=== PATIENT | male | born 1965 | race African-American/Black ===

== ENCOUNTER 2017-08-24 11:07 | Observation (INO) | payer OTHER, SELFPAY ==
[2017-08-24] MEDS ORDERED: NA CHLORIDE 0.9% 2,000 ML ONE (12:00)
--- NOTE | 2017-08-24 12:35 | RAD REPORT ---
EXAM DESCRIPTION: Jazmyne Single View08/24/2017 12:29 pm CLINICAL HISTORY: Chest pain COMPARISON: December 2016 FINDINGS: The lungs appear clear of acute infiltrate. The heart is normal size IMPRESSION: No acute abnormalities displayed
[2017-08-24 12:38] LABS: Absolute Lymphocytes (CBC) 2.5 K/uL (0.7-4.9); Absolute Monocytes 0.6 K/uL (0.1-1.3); Absolute Neutrophil 11.3 K/uL (1.8-8.0); Basophils % 0.5 % (0-1.3); Eosinophils % 0.3 % (0-4.4); Hematocrit 44.2 % (39.6-49.0); MCH 29.3 pg (27.0-35.0); MCV 91.3 fL (80-100); MPV 8.5 fL (7.6-11.3); RBC Red Blood Cell Count 4.84 M/uL (4.33-5.43)
[2017-08-24 12:41] LABS: Protime INR 1.05
[2017-08-24 13:04] LABS: ALT/SGPT 39 U/L (12-78); AST/SGOT 20 U/L (15-37); Albumin 4.2 g/dL (3.4-5.0); Alkaline Phosphatase 124 U/L (45-117); BUN Blood Urea Nitrogen 57 mg/dL (7-18); Bicarbonate 27 mmol/L (21-32); Bilirubin Direct < 0.1 mg/dL (0-0.2); Bilirubin Total 0.3 mg/dL (0.2-1.0); Glucose Level 112 mg/dL (74-106); Magnesium 2.9 mg/dL (1.8-2.4); NT PRO-BNP 24 pg/mL (<125); Potassium 4.9 mmol/L (3.5-5.1); Protein, Total 9.1 g/dL (6.4-8.2); Sodium Level 133 mmol/L (136-145)
[2017-08-24] MEDS ORDERED: NA CHLORIDE 0.9% 1,000 ML ONE ×2 (13:28→14:14)
[2017-08-24] MEDS ORDERED: LIDOCAINE VISCOUS 2% SOLN 15 ML UDC ONE (13:36)
[2017-08-24 13:57] LABS: Arterial Blood Carboxyhemoglob 0.6 % (0-1.5); Blood Gas Oxyhemoglobin 92.5 % (94-97); Blood O2 Saturation 94.2 % (92-98.5)
--- NOTE | 2017-08-24 14:02 | ER ---
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 Then I felt a tightness in my chest and lost all my energy. My vision keeps going in an out.". Transition of care: patient was not received from another setting of care. Onset of symptoms was August 24, 2017 at 08:30. Risk Assessment: Do you want to hurt yourself or someone else? Patient reports no desire to harm self or others. Initial Sepsis Screen: Does the patient meet any 2 criteria? Systolic BP < 90 mmHg. No. Patient's initial sepsis screen is negative. Does the patient have a suspected source of infection? No. Patient's initial sepsis screen is negative. Care prior to arrival: None. 11:34 Method Of Arrival: Ambulatory lk1 11:34 Acuity: VICK 3 lk1 Historical: - Allergies: 11:36 No Known Allergies; lk1 - PMHx: 11:36 Hyperlipidemia; Hypertension; Diabetes - NIDDM; lk1 - PSHx: 11:36 None; lk1 - Immunization history:: Adult Immunizations up to date. - Social history:: Smoking status: Patient/guardian denies using tobacco. - Ebola Screening: : Patient negative for fever greater than or equal to 101.5 degrees Fahrenheit, and additional compatible Ebola Virus Disease symptoms Patient denies exposure to infectious person Patient denies travel to an Ebola-affected area in the 21 days before illness onset No symptoms or risks identified at this time. Screenin:00 Abuse screen: Denies threats or abuse. Denies injuries from another. Nutritional jl7 screening: No deficits noted. Tuberculosis screening: No symptoms or risk factors identified. Fall Risk IV access (20 points). Total Mcfadden Fall Scale indicates No Risk (0-24 pts). Assessment: 11:30 General: Appears in no apparent distress. uncomfortable, Behavior is calm, cooperative, jl7 appropriate for age. Pain: Denies pain. Neuro: Level of Consciousness is awake, alert, obeys commands, Oriented to person, place, time, situation. Cardiovascular: Heart tones S1 S2 present Patient's skin is warm and dry. Respiratory: Airway is patent Respiratory effort is even, unlabored, Respiratory pattern is regular, symmetrical, Breath sounds are clear bilaterally. GI: Patient currently denies diarrhea, nausea, vomiting. : Denies burning with urination, inability to void, pain urgency. EENT: No signs and/or symptoms were reported regarding the EENT system. Derm: Skin is dry, Skin is normal, Skin temperature is warm. Musculoskeletal: No signs and/or symptoms reported regarding the musculoskeletal system. 12:30 Reassessment: No changes from previously documented assessment. Patient and/or family jl7 updated on plan of care and expected duration. Pain level reassessed. Patient is alert, oriented x 3, equal unlabored respirations, skin warm/dry/pink. 13:30 Reassessment: Patient and/or family updated on plan of care and expected duration. Pain jl7 level reassessed. Patient is alert, oriented x 3, equal unlabored respirations, skin warm/dry/pink. 14:30 Reassessment: Patient and/or family updated on plan of care and expected duration. Pain jl7 level reassessed. Patient is alert, oriented x 3, equal unlabored respirations, skin warm/dry/pink. Vital Signs: 11:37 BP 84 / 56; Pulse 102; Resp 18; Temp 96.8(TE); Pulse Ox 100% on R/A; Weight 112.49 kg lk1 (R); Height 6 ft. 3 in. (190.50 cm) (R); Pain 7/10; 12:15 BP 99 / 62; Pulse 85; Resp 16; Pulse Ox 100% ; jl7 12:45 BP 85 / 55; Pulse 72; Resp 16; Pulse Ox 100% ; jl7 13:18 BP 98 / 60; Pulse 70; Resp 16; Pulse Ox 100% ; jl7 14:00 BP 92 / 74; Pulse 73; Resp 16 S; Pulse Ox 100% on R/A; jl7 14:49 BP 109 / 71; Pulse 87; Resp 16; Temp 98.5; Pulse Ox 100% ; Pain 0/10; jl7 11:37 Body Mass Index 31.00 (112.49 kg, 190.50 cm) lk1 ED Course: 11:12 Patient arrived in ED. mr 11:12 None, None is Private Physician. mr 11:30 Chavo Boone PA is PHCP. jr8 11:30 Devon Eng MD is Attending Physician. jr8 11:30 Initial lab(s) drawn, by mn, sent to lab. Inserted saline lock: 20 gauge in left jl7 antecubital area, using aseptic technique. Blood collected. 11:34 Maryse Bynum RN is Primary Nurse. jl7 11:36 Triage completed. lk1 11:37 Arm band placed on right wrist. lk1 11:45 Patient has correct armband on for positive identification. Bed in low position. Call jl7 light in reach. Side rails up X 1. color television console monitor on. Pulse ox on. NIBP on. 12:26 X-ray completed. Portable x-ray completed in exam room. Patient tolerated procedure kp1 well. 12:27 XRAY Chest (1 view) In Process Unspecified. EDMS 12:30 Inserted saline lock: 22 gauge in right hand, using aseptic technique. jl7 14:01 Ultrasound completed. Patient tolerated well. aa4 14:01 Adiel Timmons DO is Hospitalizing Provider. jr8 14:02 US Rp Exam Complete In Process Unspecified. EDMS 14:42 Urine collected: clean catch specimen, cloudy, erica colored. jl7 16:20 No provider procedures requiring assistance completed. Patient admitted, IV remains in jl7 place. intact, No redness/swelling at site. Administered Medications: 12:00 Drug: NS 0.9% 1000 ml Route: IV; Rate: 1000 ml; Site: left antecubital; jl7 13:00 Follow up: IV Status: Completed infusion jl7 13:30 Drug: NS 0.9% (30 ml/kg) 30 ml/kg Route: IV; Rate: bolus; Site: left antecubital; jl7 16:21 Follow up: IV Status: Infusion continued upon admission jl7 Output: 14:40 Urine: 130ml (Voided); Total: 130ml. jl7 Outcome: 14:01 Decision to Hospitalize by Provider. jr8 16:19 Admitted to Med/surg accompanied by tech, family with patient, via wheelchair, room jl7 206, with chart, Report called to JUVENCIO Abdi 16:19 Condition: stable 16:19 Discharge instructions given to patient, Instructed on the need for admit, Demonstrated understanding of instructions. 16:21 Patient left the ED. jl7 Signatures: Dispatcher [employer] EDYoselin Bonilla [place], [place] aa4 Chavo Boone PA PA jr8 Masha Simental, JUVENCIO RN lk1 Maryse Bynum RN RN jl7 Carmencita Foley 1
--- NOTE | 2017-08-24 14:03 | EDPHYS ---
Physician Documentation [facility] Name: Sridhar Henriquez Age: 52 yrs Sex: Male : 1965 Arrival Date: 08/24/2017 Time: 11:12 Bed 8 Private MD: None, None ED Physician Devon Eng HPI: 08/24 12:48 This 52 yrs old Black Male presents to ER via Ambulatory with complaints of chest pain jr8 Left Side Numbness, Blurred Vision. 12:48 The patient or guardian reports chest pain that is located primarily in the substernal jr8 area. Onset: acutely, today. The pain radiates to the left arm. Associated signs and symptoms: Pertinent positives: visual disturbance. The chest pain is described as squeezing. Duration: The patient or guardian reports a single episode, that lasted 1 hour(s). Modifying factors: The symptoms are alleviated by nothing. the symptoms are aggravated by nothing. Severity of pain: At its worst the pain was moderate in the emergency department the pain has improved mildly. The patient has experienced a previous episode. The patient has not recently seen a physician. Historical: - Allergies: 11:36 No Known Allergies; lk1 - PMHx: 11:36 Hyperlipidemia; Hypertension; Diabetes - NIDDM; lk1 - PSHx: 11:36 None; lk1 - Immunization history:: Adult Immunizations up to date. - Social history:: Smoking status: Patient/guardian denies using tobacco. - Ebola Screening: : Patient negative for fever greater than or equal to 101.5 degrees Fahrenheit, and additional compatible Ebola Virus Disease symptoms Patient denies exposure to infectious person Patient denies travel to an Ebola-affected area in the 21 days before illness onset No symptoms or risks identified at this time. ROS: 12:48 Eyes: Negative for injury, pain, redness, and discharge, ENT: Negative for injury, jr8 pain, and discharge, Neck: Negative for injury, pain, and swelling, Respiratory: Negative for shortness of breath, cough, wheezing, and pleuritic chest pain, Abdomen/GI: Negative for abdominal pain, nausea, vomiting, diarrhea, and constipation, Back: Negative for injury and pain, MS/Extremity: Negative for injury and deformity, Skin: Negative for injury, rash, and discoloration, Neuro: Negative for headache, weakness, numbness, tingling, and seizure. 12:48 Cardiovascular: Positive for chest pain, Negative for edema, orthopnea, palpitations, paroxysmal nocturnal dyspnea. Exam: 12:52 Eyes: Pupils equal round and reactive to light, extra-ocular motions intact. Lids and jr8 lashes normal. Conjunctiva and sclera are non-icteric and not injected. Cornea within normal limits. Periorbital areas with no swelling, redness, or edema. ENT: Nares patent. No nasal discharge, no septal abnormalities noted. Tympanic membranes are normal and external auditory canals are clear. Oropharynx with no redness, swelling, or masses, exudates, or evidence of obstruction, uvula midline. Mucous membranes moist. Neck: Trachea midline, no thyromegaly or masses palpated, and no cervical lymphadenopathy. Supple, full range of motion without nuchal rigidity, or vertebral point tenderness. No Meningismus. Cardiovascular: Regular rate and rhythm with a normal S1 and S2. No gallops, murmurs, or rubs. Normal PMI, no JVD. No pulse deficits. Respiratory: Lungs have equal breath sounds bilaterally, clear to auscultation and percussion. No rales, rhonchi or wheezes noted. No increased work of breathing, no retractions or nasal flaring. Abdomen/GI: Soft, non-tender, with normal bowel sounds. No distension or tympany. No guarding or rebound. No evidence of tenderness throughout. Back: No spinal tenderness. No costovertebral tenderness. Full range of motion. Skin: Warm, dry with normal turgor. Normal color with no rashes, no lesions, and no evidence of cellulitis. MS/ Extremity: Pulses equal, no cyanosis. Neurovascular intact. Full, normal range of motion. Neuro: Awake and alert, GCS 15, oriented to person, place, time, and situation. Cranial nerves II-XII grossly intact. Motor strength 5/5 in all extremities. Sensory grossly intact. Cerebellar exam normal. Normal gait. Vital Signs: 11:37 BP 84 / 56; Pulse 102; Resp 18; Temp 96.8(TE); Pulse Ox 100% on R/A; Weight 112.49 kg lk1 (R); Height 6 ft. 3 in. (190.50 cm) (R); Pain 7/10; 12:15 BP 99 / 62; Pulse 85; Resp 16; Pulse Ox 100% ; jl7 12:45 BP 85 / 55; Pulse 72; Resp 16; Pulse Ox 100% ; jl7 13:18 BP 98 / 60; Pulse 70; Resp 16; Pulse Ox 100% ; jl7 14:00 BP 92 / 74; Pulse 73; Resp 16 S; Pulse Ox 100% on R/A; jl7 14:49 BP 109 / 71; Pulse 87; Resp 16; Temp 98.5; Pulse Ox 100% ; Pain 0/10; jl7 11:37 Body Mass Index 31.00 (112.49 kg, 190.50 cm) lk1 MDM: 11:30 Patient medically screened. jr8 13:30 ED course: Dr. Urrutia consulted and came and saw patient in ED . jr8 13:59 Data reviewed: vital signs, nurses notes, lab test result(s), EKG, radiologic studies, jr8 plain films, ultrasound, and as a result, I will admit patient. Data interpreted: Pulse oximetry: on room air is 100 %. Interpretation: normal. Counseling: I had a detailed discussion with the patient and/or guardian regarding: the historical points, exam findings, and any diagnostic results supporting the discharge/admit diagnosis, lab results, radiology results, the need for further work-up and treatment in the hospital. 14:02 Physician consultation: Adiel Timmons DO was called at 14:02, was contacted at 14:02, jr8 regarding admission, to the telemetry unit. consult, patient's condition, and will see patient. 08/24 11:39 Order name: Glucose, Ancillary Testing; Complete Time: 11:41 EDMI 08/24 11:45 Order name: Basic Metabolic Panel; Complete Time: 13:16 08/24 11:45 Order name: CBC with Diff; Complete Time: 12:52 [facility] 08/24 11:45 Order name: LFT's; Complete Time: 13:16 [facility] 08/24 11:45 Order name: Magnesium; Complete Time: 13:16 08/24 11:45 Order name: NT PRO-BNP; Complete Time: 13:16 [facility] 08/24 11:45 Order name: PT-INR; Complete Time: 12:52 [facility] 08/24 11:45 Order name: Troponin (emerg Dept Use Only); Complete Time: 13:16 08/24 12:53 Order name: Blood Culture Adult (2) 08/24 12:53 Order name: Procalcitonin; Complete Time: 16:13 08/24 13:21 Order name: CPK; Complete Time: 15:48 08/24 13:21 Order name: Uric Acid; Complete Time: 15:48 08/24 13:21 Order name: Urine For Protein, Random; Complete Time: 15:48 08/24 13:21 Order name: Urine Creatinine; Complete Time: 15:48 08/24 11:45 Order name: XRAY Chest (1 view); Complete Time: 12:42 08/24 11:45 Order name: EKG; Complete Time: 11:46 08/24 11:45 Order name: Cardiac monitoring; Complete Time: 14:39 08/24 11:45 Order name: EKG - Nurse/Tech; Complete Time: 14:39 08/24 11:45 Order name: IV Saline Lock; Complete Time: 14:39 08/24 11:45 Order name: Labs collected and sent; Complete Time: 14:39 08/24 11:45 Order name: O2 Per Protocol; Complete Time: 14:39 08/24 13:21 Order name: US Rp Exam Complete; Complete Time: 14:54 08/24 13:21 Order name: Urine Sodium Random; Complete Time: 15:48 08/24 13:39 Order name: ABG 08/24 13:39 Order name: ABG Arterial Blood Gas; Complete Time: 14:12 EDMS 08/24 14:06 Order name: Lactate; Complete Time: 15:48 08/24 14:06 Order name: Ketone, Serum; Complete Time: 20:09 08/24 14:41 Order name: Urine Dipstick--Ancillary (enter results) ag 08/24 11:45 Order name: O2 Sat Monitoring; Complete Time: 14:39 08/24 11:45 Order name: Urine Dipstick-Ancillary (obtain specimen); Complete Time: 14:55 08/24 13:57 Order name: Labs - recollect needed; Complete Time: 14:39 ag Administered Medications: 12:00 Drug: NS 0.9% 1000 ml Route: IV; Rate: 1000 ml; Site: left antecubital; jl7 13:00 Follow up: IV Status: Completed infusion jl7 13:30 Drug: NS 0.9% (30 ml/kg) 30 ml/kg Route: IV; Rate: bolus; Site: left antecubital; jl7 16:21 Follow up: IV Status: Infusion continued upon admission jl7 Disposition: 14:02 Critical Care:. jr8 Disposition: 08/24/17 14:01 Hospitalization ordered by Adiel Timmons for Inpatient Admission. Preliminary diagnosis are Acute kidney failure, Hypotension. - Bed requested for Telemetry/MedSurg (Inpatient). - Status is Inpatient Admission. jl7 - Condition is Fair. - Problem is new. - Symptoms have improved. UTI on Admission? No Critical care time excluding procedures: 14:02 Critical care time: Bedside Care: 20 minutes, Consultation: 15 minutes, Family jr8 Intervention: 10 minutes. Total time: 45 minutes Addendum: 08/31/2017 11:24 Co-signature as Attending Physician, Devon Eng MD I agree with the assessment and k dr plan of care. Signatures: Dispatcher [employer] EDMS Devon Eng MD MD [facility] Stephanie Koo RN RN iw Chavo Boone PA PA jr8 Vicki Schmid Leah, RN RN lk1 Maryse Bynum RN RN jl7 Corrections: (The following items were deleted from the chart) 08/24 14:57 14:01 Hospitalization Ordered by Adiel Timmons DO for Inpatient Admission. Preliminary iw diagnosis is Acute kidney failure; Hypotension. Bed requested for Telemetry/MedSurg (Inpatient). Status is Inpatient Admission. Condition is Fair. Problem is new. Symptoms have improved. UTI on Admission? No. jr8 16:21 14:57 08/24/2017 14:01 Hospitalization Ordered by Adiel Timmons DO for Inpatient jl7 Admission. Preliminary diagnosis is Acute kidney failure; Hypotension. Bed requested for Telemetry/MedSurg (Inpatient). Status is Inpatient Admission. Condition is Fair. Problem is new. Symptoms have improved. UTI on Admission? No. iw
[2017-08-24] MEDS ORDERED: ACETAMINOPHEN 500 MG TAB PO PRN (14:29)
[2017-08-24] MEDS ORDERED: ONDANSETRON 4 MG/2 ML VIAL IV PRN (14:29)
--- NOTE | 2017-08-24 14:33 | RAD REPORT ---
EXAM DESCRIPTION: US - Renal Ultrasound-Complete - 08/24/2017 2:21 pm CLINICAL HISTORY: . Acute renal failure COMPARISON: February 2017 cat scan FINDINGS: The right kidney measures 12 cm with a normal echotexture. A 2.8 centimeter right renal cy st is present. The left kidney measures cm 13 with a normal echotexture. A tiny nonobstructing left renal calculus i s present Hydronephrosis is not seen. Evaluation bladder was limited as it is decompressed IMPRESSION: 2.8 centimeter right renal cyst Tiny nonobstructing left renal calculus No hydronephrosis
--- NOTE | 2017-08-24 14:44 | P.HP ---
Certification for Inpatient Patient admitted to: Inpatient With expected LOS: >2 Midnights Patient will require the following post-hospital care: None Practitioner: I am a practitioner with admitting privileges, knowledge of patient current condition, hospital course, and medical plan of care. Services: Services provided to patient in accordance with Admission requirements found in Title 42 Section 412.3 of the Code of Federal Regulations Patient History Date of Service: 08/24/17 Primary Care Provider: [facility] Reason for admission: Chest pain History of Present Illness: 52-year-old male presented to emergency room with chest pain. Patient reported chest pain today. It felt like a tightness. He reported some numbess to the left upper ext. He also reported some blurry vision and lightheadedness. 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 Over the last 2 days he has been working extensively. He felt overheated yesterday. Today he did feel a little bit tired. He has a history of hypertension, diabetes, hyperlipidemia. He is currently taking 3 different HTN medication and metformin. Patient was seen last year for hyperglycemia. He was sent home at that time with Lisinopril and levemir. He mentions that his current doctor has adjusted medication. In the ER he was found to have acute renal failure. Creatinine of 5.4, GFR-14. Renal US shows no obstruction or hydronephrosis. Nonobstructing small left renal calculus is noted. He has a right renal cyst. He was hypotensive in the ER. He aggressively given IV fluids. His BP is better. Due to the findings, he will be admitted for further treatment and evaluation. When I saw him in the ER, he was stable. Patient felt much improved. Allergies No Known Allergies Allergy (Unverified 01/05/17 18:07) Home medications list reviewed: Yes Home Medications: Aspirin [Aspirin EC 81 MG] 81 mg PO DAILY 01/05/17 Lisinopril [Prinivil*] 20 mg PO DAILY 01/05/17 Aspirin [Aspirin EC 81 MG] 81 mg PO DAILY #90 tablet. 01/07/17 Atorvastatin Calcium [Lipitor] 40 mg PO BEDTIME #30 tab 01/07/17 Famotidine [Pepcid] 20 mg PO BID #60 tab 01/07/17 Insulin Detemir [Levemir*] 20 units SQ BIDWM #1 ml 01/07/17 - Past Medical/Surgical History Diabetic: Yes -: DM-Type 2 -: HTN -: Hyperlipidemia -: Tobacco abuse -: GERD Past Surgical History: Reviewed- Non-Contributory Psychosocial/ Personal History: He has a partner. He works as a development consultant - Family History Father -: Diabetes Mother -: Diabetes - Social History Smoking Status: Heavy Tobacco smoker (>10 cigarettes/day) Counseled patient to stop smoking for: less than 10 minutes Smoking therapy provided: Yes Patient receptive to therapy: Yes Alcohol use: No CD- Drugs: No Caffeine use: Yes Place of Residence: Home Review of Systems General: Weakness, As per HPI Eyes: Unremarkable ENT: Unremarkable Respiratory: Unremarkable Cardiovascular: Chest Pain, Light Headedness, As per HPI Gastrointestinal: Unremarkable Genitourinary: Unremarkable Musculoskeletal: Unremarkable Integumentary: Unremarkable Neurological: Weakness, As per HPI Lymphatics: Unremarkable Physical Examination - Physical Exam General: Alert, In no apparent distress, Oriented x3, Cooperative HEENT: Atraumatic, Normocephalic, PERRLA, Other (Dry mucous membranes) Neck: Supple, No Thyromegaly Respiratory: Clear to auscultation bilaterally, Normal air movement Cardiovascular: Normal pulses, Regular rate/rhythm Gastrointestinal: Normal bowel sounds, Soft and benign, Non-distended, No tenderness, No masses, No rebound, No guarding Musculoskeletal: No contractures, No erythema, No tenderness, No warmth Integumentary: No erythema, No warmth, No cyanosis, Other (dry skin) Neurological: Normal speech, Normal strength at 5/5 x4 extr, Normal tone, Normal affect Lymphatics: No axilla or inguinal lymphadenopathy - Studies Laboratory Data (last 24 hrs) 08/24/17 11:55: PT 12.4, INR 1.05 08/24/17 11:55: WBC 14.5 H, Hgb 14.2, Hct 44.2, Plt Count 423 H 08/24/17 11:55: Sodium 133 L, Potassium 4.9, BUN 57 H, Creatinine 5.40 H*, Glucose 112 H, Magnesium 2.9 H, Total Bilirubin 0.3, AST 20, ALT 39, Alkaline Phosphatase 124 H Assessment and Plan - Problems (Diagnosis) (1) Acute renal failure Current Visit: Yes Status: Acute Plan: Likely from dehydration. Nephrology consulted. Spoke to Nephrology. Will need to monitor IN/OUT. Continue with aggressive hydration. Will need to assess for DKA. Renal US shows no obstruction. Will need to hold any medication that will interfere with his kidney function. (2) Dehydration Current Visit: Yes Status: Acute Plan: Continue with IV fluids. (3) Diabetes mellitus Current Visit: Yes Status: Chronic Plan: Will check A1c. Will provide Sliding scale. Will hold Metformin. He previous took Levemir but no longer takes this. Qualifiers: Diabetes mellitus type: type 2 Diabetes mellitus fdc insulin use: without intermediate card tender use Diabetes mellitus complication status: with other specified complication Qualified Code(s): E11.69 - Type 2 diabetes mellitus with other specified complication (4) HTN (hypertension) Onset Date: 01/06/17 Current Visit: No Status: Chronic Plan: Will need to hold medication due to hypotension. Will need to obtain and verify home meds. Qualifiers: Hypertension type: essential hypertension Qualified Code(s): I10 - Essential (primary) hypertension (5) Hyperlipidemia Onset Date: 01/06/17 Current Visit: No Status: Chronic Plan: Will need to obtain home meds. Qualifiers: Hyperlipidemia type: mixed hyperlipidemia Qualified Code(s): E78.2 - Mixed hyperlipidemia (6) Obesity Current Visit: No Status: Chronic Plan: Will continue to address lifestyle modifications. Qualifiers: Obesity type: unspecified obesity type Obesity classification: adult class 1 (BMI 30 - 34.9) Body mass index: BMI 32.0-32.9 (7) GERD (gastroesophageal reflux disease) Current Visit: No Status: Chronic Plan: Continue with PPI Qualifiers: Esophagitis presence: esophagitis presence not specified Qualified Code(s) : K21.9 - Gastro-esophageal reflux disease without esophagitis (8) Hypotension Current Visit: Yes Status: Acute Plan: Continue with IV fluids. (9) Renal cyst Current Visit: Yes Status: Acute Plan: Likely benign. Will monitor. (10) Renal calculus Current Visit: Yes Status: Acute Plan: Will monitor. No obstruction noted. Discharge Plan: Home Plan to discharge in: 48 Hours - Advance Directives Does patient have a Living Will: No Does patient have a Durable POA for Healthcare: No - Code Status/Comfort Care Code Status Assessed: Yes Time Spent Managing Pts Care (In Minutes): 55
[2017-08-24] MEDS ORDERED: D50W 25 GM/50 ML SYRINGE IV PRN (14:52)
[2017-08-24] MEDS ORDERED: GLUCAGON 1 MG/VIAL IM PRN (14:52)
[2017-08-24] MEDS: NICOTINE 21 MG/PAT TD SCH (15:00)
[2017-08-24] MEDS: NA CHLORIDE 0.9% 1,000 ML IV SCH (15:00)
[2017-08-24 15:44] LABS: Uric Acid 7.9 mg/dL (3.5-7.2)
[2017-08-24] MEDS: ENOXAPARIN 30 MG/0.3 ML SQ SCH (16:15)
[2017-08-24] MEDS: INSULIN -REGULAR HUMAN 50 UNIT/0.5 ML ML SQ SCH ×2 (16:30→21:00)
[2017-08-24 18:00] LABS: Urine Appearance CLEAR; Urine Bilirubin NEGATIVE (NEG); Urine Blood 1+ (NEG); Urine Color YELLOW; Urine Glucose NEGATIVE (NEG); Urine Protein NEGATIVE (NEG); Urine Specific Gravity 1.015 (1.005-1.030); Urine Urobilinogen 0.2 mg/dL (0.2-1.0); Urine pH 5.5 (5.0-7.0)
[2017-08-24] MEDS ORDERED: PNEUMOCOCCAL VACCINE 0.5 ML IMVAC ONE (18:00)
[2017-08-24 18:07] LABS: Urine Microscopic Reflex ORDER UMIC
[2017-08-24 18:16] LABS: Barbiturates NEGATIVE (NEGATIVE); Benzodiazepines NEGATIVE (NEGATIVE); Cocaine NEGATIVE (NEGATIVE); METHAMPHETAM NEGATIVE (NEGATIVE); Methadone NEGATIVE (NEGATIVE); Opiates NEGATIVE (NEGATIVE); Phencyclidine NEGATIVE (NEGATIVE); THC Cannibis NEGATIVE (NEGATIVE)
[2017-08-24 18:18] LABS: Urine Bacteria <20 /HPF (NONE SEEN); Urine RBC <5 /HPF (NONE SEEN)
[2017-08-24 18:19] LABS: Urine Culture Reflex Order NOT NEEDED
[2017-08-24] MEDS ORDERED: TRAZODONE 50 MG TABLET PO PRN (21:41)
[2017-08-24 22:55] LABS: CKMB Creatine Kinase MB 2.3 ng/mL (0.3-3.6)
[2017-08-25] MEDS: NA CHLORIDE 0.9% 1,000 ML IV SCH ×2 (00:26→04:12)
--- NOTE | 2017-08-25 01:57 | CON ---
Date of Consultation: 08/24/2017 Reason For Consultation: Elevated BUN and creatinine, electrolyte imbalance. History Of Present Illness: This is a pleasant 52-year-old gentleman with significa nt past medical history of hypertension, hyperlipidemia, GERD, diabetes complicated with neuropathy, no retinopathy, no nephropathy, hyperlipidemia, no carotid artery disease, gout, no recent attack, no nonsteroidal intake, the patient was in his regular state of health. Apparently, the patient was no t working for a long time, back to work a couple of weeks ago and started over working himself, start ed feeling tired, was working in the heat. Came to the hospital. Found to have low blood pressure. Blood pressure was down to 70. The patient was awake with all these symptoms. The patient denies a ny dysuria, any hematuria. Denied any cough. Primary workup in the hospital showed elevated BUN and creatinine, creatinine up to 5.4, with bicarb of 27. For that reason, we have been consulted. The patient denied taking any nonsteroidal. The patient had no recent hospitalization, no antibiotic, no IV contrast. Home Medications: 1.Aspirin. 2.Lisinopril. 3.Atorvastatin. 4.Pepcid. 5.Insulin. Past Medical History: 1.Diabetes, complicated with neuropathy, no retinopathy. 2.Hypertension. 3.Hyperlipidemia. 4.GERD. Past Surgical History: Noncontributory. Family History: Positive for diabetes and hypertension. Social History: Active smoker. Denied alcohol. Denied drugs abuse. Review of Systems: Head and Neck: No red eye. No ear pain. GI: No nausea. No vomiting. : No polyuria. No dysuria. No hematuria. 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 Respiratory: No shortness of breath. Cardiovascular: Has presyncope. Endocrine: No polydipsia. Skin: No rash. Neuro: Has presyncope, weakness. Musculoskeletal: Generalized fatigue. Physical Examination: General: When I saw the patient, the patient is lying in bed, not on any distress even though blood pressure of 72/40, pulse of 98. Chest: Clear to auscultation. Heart: S1, S2. Regular. Abdomen: Soft, nontender. Extremities: No edema. Laboratory Data: WBC 14.5, H and H 14.2/44.2, platelets 423. Sodium 133, potassium 4.9, bicarb 27, chloride 98, BUN 57, creatinine 5.4, GFR of 14, glucose 112, calcium 9.3, magnesium 2.9. BNP 24, alb umin 4.2, procalcitonin 0.7. Urine analysis; specific gravity of 5.5, negative for infection. Current Medications: For the patient include nicotine patch, Lovenox, trazodone, Zofran, IV fluid. Assessment And Plan: 1.Acute kidney injury on normal kidney disease, baseline creatinine back in February 2017 0.6 with no rmal GFR above 90. 2.Nonoliguric without hyperkalemia, complicated with acidosis, possible to rule out rhabdomyolysis. I am going to go ahead and start superimposed with MELISSA inhibitor. 3.Discontinue MELISSA inhibitor. Discontinue all blood pressure medications. 4.Start aggressive hydration with fluid resuscitation giving the fact that the patient is on shock. 5.We will send for full workup including renal ultrasound, repeat CK, protein creatinine, and we reynaldo l monitor. 6.Hypertension, currently hypotension, with acute kidney injury. Discontinue all blood pressure med ications, especially MELISSA inhibitor. We will monitor. 7.Primary metabolic acidosis with severe contraction alkalosis secondary to dehydration. I am going to go ahead and start fluid resuscitation. We will bolus the patient up to 4 L and maintain the pat ient on normal saline 100 per hour and we will follow up. 8.I am going to go ahead and send for ketone, alcohol level, salicylate, and urine drug screen, and we will follow up. 9.Contraction alkalosis. Start fluid resuscitation. 10.Diabetes, as by primary. The case was discussed with Dr. Timmons, agreed on the plan. We will follow up. Discussed with the p steven, verbalized understanding. SHANA Voice ID: [id number] Report ID: [id number]
[2017-08-25 06:23] LABS: Absolute Lymphocytes (CBC) 2.5 K/uL (0.7-4.9); Absolute Monocytes 0.5 K/uL (0.1-1.3); Basophils % 0.8 % (0-1.3); Eosinophils % 0.7 % (0-4.4); Hematocrit 37.2 % (39.6-49.0); Lymphocytes % 24.1 % (15.3-44.8); MCH 30.3 pg (27.0-35.0); MCV 89.8 fL (80-100); MPV 8.2 fL (7.6-11.3); Monocytes % 5.4 % (3.3-12.3); RBC Red Blood Cell Count 4.14 M/uL (4.33-5.43)
--- NOTE | 2017-08-25 06:26 | EKG ---
Test Date: 2017-08-24 Test Time: 12:10:39 Business Management Analyst: CECILIA MEASUREMENT RESULTS: Intervals: Rate: 79 AL: 158 QRSD: 80 QT: 354 QTc: 405 [place]: P: 36 AL: 158 QRS: 14 T: 12 INTERPRETIVE STATEMENTS: Normal sinus rhythm Normal ECG Compared to ECG 01/05/2017 15:58:13 No significant changes Electronically Signed On 08-25-17 06:25:33 CDT by Isaiah Frye
[2017-08-25 06:44] LABS: Magnesium 2.5 mg/dL (1.8-2.4); Potassium 5.1 mmol/L (3.5-5.1)
[2017-08-25 06:47] LABS: CKMB Creatine Kinase MB 1.6 ng/mL (0.3-3.6)
[2017-08-25] MEDS ORDERED: HYDRALAZINE HCL 20 MG/ML VIAL IV PRN (07:16)
[2017-08-25] MEDS: PANTOPRAZOLE 40MG TABLET PO SCH ×2 (07:30→10:44)
[2017-08-25] MEDS: INSULIN -REGULAR HUMAN 50 UNIT/0.5 ML ML SQ SCH (07:30)
--- NOTE | 2017-08-25 08:52 | P.DS ---
Admission Date: 08/24/17 Discharge Date: 08/25/17 Primary Care Provider: [facility] Disposition: ROUTINE DISCHARGE Discharge Condition: GOOD Reason for Admission: Chest pain Consultations: Nephrology-Dr. Urrutia Procedures: Renal ultrasound: COMPARISON: February 2017 cat scan FINDINGS: The right kidney measures 12 cm with a normal echotexture. A 2.8 centimeter right renal cyst is present. The left kidney measures cm 13 with a normal echotexture. A tiny nonobstructing left renal calculus is present Hydronephrosis is not seen. Evaluation bladder was limited as it is decompressed IMPRESSION: 2.8 centimeter right renal cyst Tiny nonobstructing left renal calculus No hydronephrosis - Problems (1) Acute renal failure Onset Date: 08/25/17 Current Visit: No Status: Acute (2) Dehydration Onset Date: 08/25/17 Current Visit: No Status: Acute (3) Diabetes mellitus Onset Date: 08/25/17 Current Visit: No Status: Chronic Qualifiers: Diabetes mellitus type: type 2 Diabetes mellitus terminal gauger supervisor insulin use: without fpc use Diabetes mellitus complication status: with other specified complication Qualified Code(s): E11.69 - Type 2 diabetes mellitus with other specified complication (4) HTN (hypertension) Onset Date: 01/06/17 Current Visit: No Status: Chronic Qualifiers: Hypertension type: essential hypertension Qualified Code(s): I10 - Essential (primary) hypertension (5) Hyperlipidemia Onset Date: 01/06/17 Current Visit: No Status: Chronic Qualifiers: Hyperlipidemia type: mixed hyperlipidemia Qualified Code(s): E78.2 - Mixed hyperlipidemia (6) Obesity Onset Date: 08/25/17 Current Visit: No Status: Chronic Qualifiers: Obesity type: unspecified obesity type Obesity classification: adult class 1 (BMI 30 - 34.9) Body mass index: BMI 32.0-32.9 (7) GERD (gastroesophageal reflux disease) Onset Date: 08/25/17 Current Visit: No Status: Chronic Qualifiers: Esophagitis presence: esophagitis presence not specified Qualified Code(s) : K21.9 - Gastro-esophageal reflux disease without esophagitis (8) Hypotension Onset Date: 08/25/17 Current Visit: No Status: Acute (9) Renal cyst Onset Date: 08/25/17 Current Visit: No Status: Acute (10) Renal calculus Onset Date: 08/25/17 Current Visit: No Status: Acute Brief History of Present Illness: 52-year-old male presented to emergency room with chest pain. Patient reported chest pain today. It felt like a tightness. He reported some numbess to the left upper ext. He also reported some blurry vision and lightheadedness. 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 Over the last 2 days he has been working extensively. He felt overheated yesterday. Today he did feel a little bit tired. He has a history of hypertension, diabetes, hyperlipidemia. He is currently taking 3 different HTN medication and metformin. Patient was seen last year for hyperglycemia. He was sent home at that time with Lisinopril and levemir. He mentions that his current doctor has adjusted medication. In the ER he was found to have acute renal failure. Creatinine of 5.4, GFR-14. Renal US shows no obstruction or hydronephrosis. Nonobstructing small left renal calculus is noted. He has a right renal cyst. He was hypotensive in the ER. He aggressively given IV fluids. His BP is better. Due to the findings, he will be admitted for further treatment and evaluation. When I saw him in the ER, he was stable. Patient felt much improved. Hospital Course: The patient did well during the course of his stay. Patient responded well to IV fluids. Patient presented with dehydration and acute renal failure. This was likely from dehydration. This was also compromised by his diabetic and hypertensive medications. Repeat lab shows significant improvement in renal function and back to baseline. GFR was 14 now 77. At discharge patient encouraged to increase his fluid intake when working. Patient may need salt tablets while working. Recommendation is to recheck lab-BMP in 1 week to monitor his progress. Patient will return to work after 3-5 days. Patient is to take frequent breaks at work. Recommendations for the patient follow up with nephrology in 2-4 weeks to monitor his progress. Patient has hypertension. Medications have been adjusted. Lisinopril has been discontinued. Carvedilol has been added. At discharge he will continue with carvedilol 3.125 mg 1 pill twice daily. Recommendation is to maintain blood pressures less 150/80. Further adjustment can be done by his PCP. Patient has diabetes. Hemoglobin A1c 6.6. This is a significant improvement from 6 months ago. Patient off insulin at this time. Patient may continue with metformin 500 mg daily. Recommendation is to maintain blood sugars less than 140 fasting and less than 200 after meals. Further adjustment can be done by his PCP. Recommendation to recheck BMP in 1 week to monitor his progress. Patient has hyperlipidemia. Patient will continue with his cholesterol medication. Patient was found to have a renal cyst and nonobstructing renal calculus. This can be followed up as an outpatient. Recommendation is for the patient to follow up with nephrology in the outpatient to further monitor. Tobacco cessation addressed in detail. Vital Signs/Physical Exam: Temp Pulse Resp BP Pulse Ox 98.2 F 79 20 140/64 98 08/25/17 04:00 08/25/17 04:00 08/25/17 04:00 08/25/17 04:00 08/25/17 04:00 General: Alert, In no apparent distress, Oriented x3, Cooperative HEENT: Atraumatic Neck: Supple, No Thyromegaly Respiratory: Clear to auscultation bilaterally, Normal air movement Cardiovascular: Normal pulses, Regular rate/rhythm Gastrointestinal: Normal bowel sounds, Soft and benign, Non-distended, No tenderness, No masses, No rebound, No guarding Musculoskeletal: No erythema, No tenderness, No warmth Integumentary: No tenderness/swelling, No erythema, No warmth, No cyanosis Neurological: Normal speech, Normal strength at 5/5 x4 extr, Normal tone, Normal affect Laboratory Data at Discharge: WBC 10.2 K/uL (4.3-10.9) D 08/25/17 05:56 Hgb 12.5 g/dL (13.6-17.9) L 08/25/17 05:56 Hct 37.2 % (39.6-49.0) L D 08/25/17 05:56 Plt Count 325 K/uL (152-406) D 08/25/17 05:56 PT 12.4 SECONDS (9.5-12.5) 08/24/17 11:55 INR 1.05 08/24/17 11:55 Sodium 139 mmol/L (136-145) 08/25/17 05:56 Potassium 5.1 mmol/L (3.5-5.1) 08/25/17 05:56 BUN 38 mg/dL (7-18) H 08/25/17 05:56 Creatinine 1.20 mg/dL (0.55-1.3) D 08/25/17 05:56 Glucose 111 mg/dL (74-106) H 08/25/17 05:56 Uric Acid 7.9 mg/dL (3.5-7.2) H 08/24/17 15:15 Magnesium 2.5 mg/dL (1.8-2.4) H 08/25/17 05:56 Total Bilirubin 0.3 mg/dL (0.2-1.0) 08/24/17 11:55 AST 20 U/L (15-37) 08/24/17 11:55 ALT 39 U/L (12-78) 08/24/17 11:55 Alkaline Phosphatase 124 U/L (45-117) H 08/24/17 11:55 Troponin I < 0.02 ng/mL (0.0-0.045) 08/25/17 05:56 Home Medications: Aspirin [Aspirin EC 81 MG] 81 mg PO DAILY #90 tablet.dr 01/07/17 Lovastatin 10 mg PO BEDTIME 08/24/17 Metformin HCl [Glucophage*] 500 mg PO DAILY AT SUPPER 08/24/17 Carvedilol [Coreg*] 3.125 mg PO BID 6AM 6PM #60 tab 08/25/17 New Medications: Carvedilol [Coreg*] 3.125 mg PO BID 6AM 6PM #60 tab Patient Discharge Instructions: 1. Patient will need a follow up with PCP in 1 week to follow up this hospitalization. 2. Patient presented with dehydration and acute renal failure. Patient received IV fluids. Renal function back to baseline. Patient evaluated by nephrology. At discharge medications have been adjusted. Patient will no longer take lisinopril. Recommendation is the patient follow up with Nephrology in 2-4 weeks to monitor his progress. Recommendation to recheck lab-BMP in 1 week to monitor his progress. Recommendation to increase fluid intake at work. Patient may require salt tablets at work. Patient to take frequent breaks at work. Patient may return to work in 3-5 days. 3. Patient has diabetes. A1c 6.6. This is an improvement since 6 months ago. Recommendation is for the patient to continue with metformin 500 mg daily. Recommendation is to maintain blood sugars less 140 fasting and less than 200 after meals. Further adjustment can be done by his PCP. 4. Patient has hypertension. Medications have been adjusted. Lisinopril discontinued at this time. Carvedilol has been started. At discharge she will continue with carvedilol 3.125 mg 1 pill twice daily. Recommendation is to maintain blood pressures less 150/80. Further adjustment can be done by his PCP. 5. Patient has hyperlipidemia. Patient continue with his medication. 6. Patient may continue with aspirin 81 mg daily. 7. Tobacco cessation is encouraged. 8. Patient found to have a nonobstructing left renal calculus with right renal cyst. This can be followed up as an outpatient. Recommendation is to follow up with nephrology in 2-4 weeks to monitor his progress. Recheck lab-BMP in 1 week. Diet: ADA Activity: Ad leigh Time spent managing pt's care (in minutes): 55
[2017-08-25] MEDS: NICOTINE 21 MG/PAT TD SCH (09:00)
[2017-08-25] MEDS: ENOXAPARIN 30 MG/0.3 ML SQ SCH ×2 (09:00→10:43)
[2017-08-25] MEDS: ASPIRIN EC 81 MG TAB PO SCH ×2 (09:00→10:44)
[2017-08-25] MEDS ORDERED: PNEUMOCOCCAL VACCINE 0.5 ML IMVAC ONE (11:00)
[2017-08-25] MEDS ORDERED: CARVEDILOL 3.125 MG TAB PO SCH (18:00)
[2017-08-25] MEDS ORDERED: ATORVASTATIN 10 MG TAB PO SCH (21:00)
== END 2017-08-25 10:48 | disposition home or self-care (01) ==
LOC: ER 11:07 → INTOOBSV 14:01 → ERHOLD 14:01 → 2ND 15:32
PROVIDERS: ADMIT Family Medicine; ATTEND Family Medicine
DX: N17.9 Acute kidney failure, unspecified (principal); E86.0 Dehydration; E78.2 Mixed hyperlipidemia; E66.9 Obesity, unspecified; Z68.32 Body mass index [BMI] 32.0-32.9, adult; K21.9 Gastro-esophageal reflux disease without esophagitis; I10 Essential (primary) hypertension; I95.9 Hypotension, unspecified; N28.1 Cyst of kidney, acquired; N20.0 Calculus of kidney; Z79.84 Long term (current) use of oral hypoglycemic drugs; E11.40 Type 2 diabetes mellitus with diabetic neuropathy, unspecified; F17.210 Nicotine dependence, cigarettes, uncomplicated; E87.3 Alkalosis
CPT/HCPCS: 36415; 71045; 76770; 80048; 80076; 80307; 80320; 80329; 81003; 81015; 82010; 82550; 82553; 82570; 82805; 82962; 83036; 83605; 83735; 83880; 84145; 84156; 84300; 84484; 84550; 85025; 85610; 87040; 90670; 93005; 96361; 96365; 96366; 99285; G0009; G0378; J1650; J7030